=== PATIENT | female | born 1980 | race American Indian/Alaskan Native ===

== ENCOUNTER 2021-06-09 15:52 | Emergency (ER) | payer MEDICARE ==
[2021-06-09 16:28] VITALS: BP 163/83
--- NOTE | 2021-06-09 16:40 | Emergency Department Report ---
HPI - General Chief Complaint: Medical Clearance - HPI HPI: 41-year-old -[place] female presents to the emergency department, sent over after an attempt at intake at [facility], for evaluation of the patient has missed her last 2 dialysis sessions. She has a past medical history of hypertension, diabetes and end-stage renal disease on hemodialysis on Friday//Friday. She has a right-sided chest permacath. The patient was found to be positive for COVID-19 on 05/27. She says that it has messed with her site and her cognitive abilities and this has caused her to have depression. She went over to [facility] voluntarily for possible intake and was told that she needed to come to the emergency department for medical clearance. She denies any suicidal or homicidal ideations. She denies any hallucinations. Patient admits to some shortness of breath but says that she thinks it is due to the fact that she has not eaten or drinking anything today and last from the fact that she has missed 2 dialysis sessions. Her mgmt analyst is a Dr. Krishnan. ED Past Medical Hx - Past Medical History Previous Medical History?: Yes Hx Hypertension: Yes Hx Renal Disease: Yes (HD [id number]) Hx Psychiatric Treatment: Yes - Surgical History Past Surgical History?: Yes Additional Surgical History: [facility] ED Review of Systems ROS: Stated complaint: MENTAL HEALTH ASSESSMENT Other details as noted in HPI Comment: All other systems reviewed and negative Constitutional: denies: chills, fever Eyes: denies: eye pain, vision change ENT: denies: ear pain, throat pain Respiratory: shortness of breath. denies: cough Cardiovascular: denies: chest pain, palpitations Gastrointestinal: denies: abdominal pain, vomiting Genitourinary: denies: dysuria, discharge Musculoskeletal: denies: back pain, arthralgia Skin: denies: rash, lesions Neurological: denies: headache, weakness Psychiatric: depression. denies: auditory hallucinations, visual hallucinations, homicidal thoughts, suicidal thoughts Physical Exam - Physical Exam Vital Signs: Vital Signs 06/09/21 16:26 Temperature 97.9 F Pulse Rate 82 Respiratory 20 Rate Blood Pressure 163/83 [Right] O2 Sat by Pulse 100 Oximetry Physical Exam: GENERAL: The patient is well-developed well-nourished. HENT: Normocephalic. Atraumatic. Patient has moist mucous membranes. EYES: Extraocular motions are intact. NECK: Supple. Trachea is midline. CHEST/LUNGS: Mild coarse breath sounds. No tachypnea or accessory muscle use. Right-sided chest permacath. HEART/CARDIOVASCULAR: Regular. There is no tachycardia. There is no murmur. ABDOMEN: Abdomen is soft, nontender. Patient has normal bowel sounds. SKIN: Skin is warm and dry. NEURO: The patient is awake, alert, and oriented. The patient is cooperative. Normal speech. MUSCULOSKELETAL: There is no tenderness or deformity. There is no limitation range of motion. ED Course Vital Signs 06/09/21 16:26 Temperature 97.9 F Pulse Rate 82 Respiratory 20 Rate Blood Pressure 163/83 [Right] O2 Sat by Pulse 100 Oximetry - Consultations Consultation #1: I spoke to the mgmt analyst on-call, Dr. Grant. He will consult on the patient and provide dialysis orders for the morning but is asked for the patient to be admitted to the hospitalist service. 06/09/21 18:00 ED Medical Decision Making - Lab Data Result diagrams: 06/09/21 17:08 06/09/21 17:08 Lab Results 06/09/21 06/09/21 Range/Units 17:08 17:08 WBC 8.4 (4.5-11.0) K/mm3 RBC 2.92 L (3.65-5.03) M/mm3 Hgb 9.4 L (10.1-14.3) gm/dl Hct 29.3 L (30.3-42.9) % MCV 100 H (79-97) fl MCH 32 (28-32) pg MCHC 32 (30-34) % RDW 14.1 (13.2-15.2) % Plt Count 218 (140-440) K/mm3 Lymph % (Auto) 17.9 (13.4-35.0) % [place] % (Auto) 7.6 H (0.0-7.3) % Eos % (Auto) 0.6 (0.0-4.3) % Baso % (Auto) 0.8 (0.0-1.8) % Lymph # (Auto) 1.5 (1.2-5.4) K/mm3 [place] # (Auto) 0.6 (0.0-0.8) K/mm3 Eos # (Auto) 0.0 (0.0-0.4) K/mm3 Baso # (Auto) 0.1 (0.0-0.1) K/mm3 Seg Neutrophils % 73.1 H (40.0-70.0) % Seg Neutrophils # 6.2 (1.8-7.7) K/mm3 Sodium 136 L (137-145) mmol/L Potassium 4.3 (3.6-5.0) mmol/L Chloride 96.0 L (98-107) mmol/L Carbon Dioxide 22 (22-30) mmol/L Anion Gap 22 mmol/L BUN 51 H (7-17) mg/dL Creatinine 6.8 H (0.6-1.2) mg/dL Estimated GFR 8 ml/min BUN/Creatinine Ratio 8 % Glucose 209 H (65-100) mg/dL Calcium 8.3 L (8.4-10.2) mg/dL - Medical Decision Making This patient presented from [facility] as they would not medically clear her being that she had missed her last 2 dialysis sessions. The patient complained of some shortness of breath but associated with not eating or drinking much today. On examination she had some mild coarse breath sounds but otherwise did not appear in any respiratory or acute distress. Chest x-ray did not show any acute process. Patient's labs were mostly unremarkable but did show renal insufficiency consistent with her end-stage renal disease on hemodialysis. I spoke to the mgmt analyst who was going to consult on the patient for dialysis in the morning. However, shortly after the patient got back to room #38, she then eloped from the emergency department. Patient says that she was voluntary at [facility]. She denies any suicidal or homicidal ideations. She does not display any signs of acute psychosis during my evaluation and did not meet criteria to be made a 1013. Critical Care Time: No Critical care attestation.: If time is entered above; I have spent that time in minutes in the direct care of this critically ill patient, excluding procedure time. ED Disposition Clinical Impression: End-stage renal disease needing dialysis Hypertension Qualifiers: Hypertension type: renovascular hypertension Qualified Code(s): I15.0 - Renovascular hypertension Disposition: 07 LEFT AGAINST MEDICAL ADVICE Is pt being admited?: No Instructions: Hypertension (ED)
--- NOTE | 2021-06-09 16:58 | XRay Report ---
XR chest routine 2V INDICATION / CLINICAL INFORMATION: SOB. COMPARISON: None available. FINDINGS: SUPPORT DEVICES: Right IJ central venous catheter projects over the right atrium. HEART /PULMONARY VASCULATURE: Heart is mildly enlarged. No significant pulmonary vasculature congesti on. LUNGS / PLEURA: No significant pulmonary or pleural abnormality. No pneumothorax. ADDITIONAL FINDINGS: No significant additional findings. IMPRESSION: 1. No acute findings. Signer Name: Donnell Mendoza MD Signed: 06/09/2021 4:53 PM Workstation Name: [id number]
[2021-06-09 17:37] LABS: Basophils # (Auto) 0.1 K/mm3 (0.0-0.1); Basophils % (Auto) 0.8 % (0.0-1.8); Eosinophils % (Auto) 0.6 % (0.0-4.3); Hematocrit 29.3 % (30.3-42.9); Hemoglobin 9.4 gm/dl (10.1-14.3); Lymphocytes # (Auto) 1.5 K/mm3 (1.2-5.4); Lymphocytes % (Auto) 17.9 % (13.4-35.0); Mean Corpuscular HGB Conc 32 % (30-34); Mean Corpuscular Volume 100 fl (79-97); Monocytes # (Auto) 0.6 K/mm3 (0.0-0.8); Monocytes % (Auto) 7.6 % (0.0-7.3); Platelet Count 218 K/mm3 (140-440); Red Blood Count 2.92 M/mm3 (3.65-5.03); Red Cell Distribution Width 14.1 % (13.2-15.2)
[2021-06-09 17:40] LABS: Calcium 8.3 mg/dL (8.4-10.2)
[2021-06-10] MEDS ORDERED: SODIUM CHLORIDE 0.9% 100 ML IV PRN (09:00)
== END 2021-06-09 18:00 | disposition left against medical advice (07) ==
LOC: ED 15:52
DX: I12.9 Hypertensive chronic kidney disease with stage 1 through stage 4 chronic kidney disease, or unspecified chronic kidney disease (principal); N18.6 End stage renal disease
CPT/HCPCS: 36415; 71046; 80048; 85025; 99283